=== PATIENT | male | born 1955 | race Hispanic/Latino ===

== ENCOUNTER 2019-12-03 12:05 | Emergency (ER) | payer MEDICARE ==
--- NOTE | 2019-12-03 14:17 | Event Note ---
ED Screening Note ED Screening Note: presents for SI that began yesterday states he plans to walk in front of a car states he has previously walked in front of a car in the past no HI no hallucinations PMHx HTN, carotid endarectomy, DM, HLD no allergies to meds non smoker non drinker no drug use has been to a psychiatric facility in the past, states he went to "[facility]" 5 years ago This initial assessment/diagnostic orders/clinical plan/treatment(s) is/are subject to change based on patients health status, clinical progression and re- assessment by fellow clinical providers in the ED. Further treatment and workup at subsequent clinical providers discretion. Patient/guardian urged not to elope from the ED as their condition may be serious if not clinically assessed and managed. Initial orders include: mental health labs ED HOLD orders placed
[2019-12-03 14:43] LABS: Basophils % (Auto) 0.5 % (0.0-1.8); Eosinophils # (Auto) 0.1 K/mm3 (0.0-0.4); Eosinophils % (Auto) 0.7 % (0.0-4.3); Hematocrit 42.3 % (35.5-45.6); Hemoglobin 14.1 gm/dl (11.8-15.2); Lymphocytes # (Auto) 1.3 K/mm3 (1.2-5.4); Lymphocytes % (Auto) 14.2 % (13.4-35.0); Mean Corpuscular HGB Conc 33 % (32-34); Mean Corpuscular Volume 87 fl (84-94); Monocytes # (Auto) 0.5 K/mm3 (0.0-0.8); Monocytes % (Auto) 5.6 % (0.0-7.3); Platelet Count 163 K/mm3 (140-440); Red Blood Count 4.86 M/mm3 (3.65-5.03); Red Cell Distribution Width 14.3 % (13.2-15.2)
[2019-12-03 15:06] LABS: Albumin 4.2 g/dL (3.9-5); Calcium 9.2 mg/dL (8.4-10.2)
[2019-12-03 15:22] LABS: Amphetamine Screen,Urine PRESUMPTIVE NEGATIVE; Benzodiazepines Screen,Urine PRESUMPTIVE NEGATIVE; Cannabinoid Screen,Urine PRESUMPTIVE NEGATIVE; Cocaine Screen,Urine PRESUMPTIVE NEGATIVE; Methadone Screen,Urine PRESUMPTIVE NEGATIVE; Opiate Screen,Urine PRESUMPTIVE NEGATIVE
[2019-12-03] MEDS ORDERED: SODIUM CHLORIDE 0.9% 1000 ML 1,000 ML IV ONE ×2 (15:31)
[2019-12-03] MEDS ORDERED: INSULIN REGULAR, HUMAN 100 UNITS/1 ML IV ONE (15:31)
--- NOTE | 2019-12-03 15:38 | Emergency Department Report ---
ED General Adult HPI - General Chief complaint: Psych Stated complaint: SUICIDAL THOUGHTS Time Seen by Provider: 12/03/19 14:15 Source: patient Mode of arrival: Ambulatory Limitations: No Limitations - History of Present Illness Initial comments: 64 y.o. male with history of diabetes, major depression and hypertension presents with complaint of suicidal ideation. Patient states that he suicidal with the plan to walk into traffic. Patient states has been suicidal for the past 2 days. Patient denies any homicidal ideation. Patient denies any audito ry or visual hallucinations. Patient states he is supposed to be on Seroquel and clonazepam therapy. Patient states that he has been noncompliant with his diabetes medications as well. Patient denies abdominal pain or vomiting. - Related Data Home Medications Medication Instructions Recorded Confirmed Last Taken Atorvastatin [Lipitor Tab] 80 mg PO QHS 12/03/19 12/04/19 12/03/19 Canagliflozin/Metformin HCl 1 each PO DAILY 12/03/19 12/04/19 12/03/19 [Invokamet 150-500 mg Tablet] Citalopram [celeXA] 40 mg PO QDAY 12/03/19 12/04/19 12/03/19 Clopidogrel [Plavix] 75 mg PO QDAY 12/03/19 12/04/19 12/03/19 Finasteride [Proscar] 5 mg PO DAILY 12/03/19 12/04/19 12/03/19 Gabapentin 300 mg DAILY 12/03/19 12/04/19 12/03/19 QUEtiapine [SEROquel] 400 mg PO DAILY 12/03/19 12/04/19 12/03/19 amLODIPine [Norvasc] 10 mg PO DAILY 12/03/19 12/04/19 12/03/19 clonazePAM [Klonopin] 1 mg PO BID 12/03/19 12/04/19 12/03/19 tiZANidine [Zanaflex 4mg TAB] 4 mg PO DAILY 12/03/19 12/04/19 12/03/19 Allergies Allergy/AdvReac Type Severity Reaction Status Date / Time No Known Allergies Allergy Unverified 12/03/19 13:04 ED Review of Systems ROS: Stated complaint: SUICIDAL THOUGHTS Other details as noted in HPI Constitutional: denies: chills, fever Eyes: denies: eye pain, eye discharge, vision change ENT: denies: ear pain, throat pain Respiratory: denies: cough, shortness of breath, wheezing Cardiovascular: denies: chest pain, palpitations Endocrine: no symptoms reported Gastrointestinal: denies: abdominal pain, nausea, diarrhea Genitourinary: denies: urgency, dysuria Musculoskeletal: denies: back pain, joint swelling, arthralgia Skin: denies: rash, lesions Neurological: denies: headache, weakness, paresthesias Psychiatric: suicidal thoughts Hematological/Lymphatic: denies: easy bleeding, easy bruising ED Past Medical Hx - Past Medical History Hx Hypertension: Yes Hx Diabetes: Yes - Surgical History Past Surgical History?: Yes - Social History Smoking Status: Never Smoker Substance Use Type: None - Medications Home Medications: Home Medications Medication Instructions Recorded Confirmed Last Taken Type Atorvastatin [Lipitor Tab] 80 mg PO QHS 12/03/19 12/04/19 12/03/19 History Canagliflozin/Metformin HCl 1 each PO DAILY 12/03/19 12/04/19 12/03/19 History [Invokamet 150-500 mg Tablet] Citalopram [celeXA] 40 mg PO QDAY 12/03/19 12/04/19 12/03/19 History Clopidogrel [Plavix] 75 mg PO QDAY 12/03/19 12/04/19 12/03/19 History Finasteride [Proscar] 5 mg PO DAILY 12/03/19 12/04/19 12/03/19 History Gabapentin 300 mg DAILY 12/03/19 12/04/19 12/03/19 History QUEtiapine [SEROquel] 400 mg PO DAILY 12/03/19 12/04/19 12/03/19 History amLODIPine [Norvasc] 10 mg PO DAILY 12/03/19 12/04/19 12/03/19 History clonazePAM [Klonopin] 1 mg PO BID 12/03/19 12/04/19 12/03/19 History tiZANidine [Zanaflex 4mg TAB] 4 mg PO DAILY 12/03/19 12/04/19 12/03/19 History ED Physical Exam - General Limitations: No Limitations General appearance: alert, in no apparent distress - Head Head exam: Present: atraumatic, normocephalic - Eye Eye exam: Present: normal appearance - ENT ENT exam: Present: mucous membranes moist - Neck Neck exam: Present: normal inspection - Respiratory Respiratory exam: Present: normal lung sounds bilaterally. Absent: respiratory distress - Cardiovascular Cardiovascular Exam: Present: regular rate, normal rhythm. Absent: systolic murmur, diastolic murmur, rubs, gallop - GI/Abdominal GI/Abdominal exam: Present: soft, normal bowel sounds - Rectal Rectal exam: Present: deferred - Extremities Exam Extremities exam: Present: normal inspection - Back Exam Back exam: Present: normal inspection - Neurological Exam Neurological exam: Present: alert, oriented X3 - Psychiatric Psychiatric exam: Present: normal affect, depressed, suicidal ideation (plan to walk into traffic) - Skin Skin exam: Present: warm, dry, intact, normal color. Absent: rash ED Course Vital Signs 12/03/19 12/03/19 12/03/19 13:00 13:03 20:05 Temperature 98.2 F 98.5 F 98.1 F Pulse Rate 77 94 H 73 Respiratory 18 16 20 Rate Blood Pressure 130/77 Blood Pressure 157/84 149/69 [Left] O2 Sat by Pulse 95 91 95 Oximetry 12/04/19 12/04/19 12/04/19 01:10 07:30 10:41 Temperature 97.4 F L 98.4 F Pulse Rate 82 81 88 Respiratory 20 18 Rate Blood Pressure 193/93 Blood Pressure 140/71 166/90 [Left] O2 Sat by Pulse 99 96 Oximetry 12/04/19 11:43 Temperature 98.4 F Pulse Rate 90 Respiratory 20 Rate Blood Pressure Blood Pressure 142/76 [Left] O2 Sat by Pulse Oximetry ED Medical Decision Making - Lab Data Result diagrams: 12/03/19 14:30 12/03/19 19:53 - Medical Decision Making Patient received IV normal saline bolus times time along with IV insulin while in the emergency department. Patient is medically clear. Patient is eating and chills no evidence of DKA. Patient awaiting Psychiatry and patient placed in ED hold. Patient has normal pH on ABG. - Differential Diagnosis Dehydration; Electrolyte Abnormality: DKA; Polysubstance Abuse; Psychosis Critical care attestation.: If time is entered above; I have spent that time in minutes in the direct care of this critically ill patient, excluding procedure time. ED Disposition Clinical Impression: Suicidal ideation, Diabetes mellitus with hyperglycemia Disposition: -01 TO HOME OR SELFCARE Is pt being admited?: No Does the pt Need Aspirin: No Condition: Stable Instructions: Diabetes Mellitus Type 2 in Adults (ED) Referrals: PRIMARY CARE, [Primary Care Provider] - 3-5 Days Time of Disposition: 22:09 Print Language: [place] CITIZ[place]
[2019-12-03 20:58] LABS: Albumin 3.6 g/dL (3.9-5); Calcium 8.3 mg/dL (8.4-10.2)
[2019-12-03] MEDS: clonazePAM 0.5 MG TAB PO SCH (22:56)
[2019-12-04 00:38] LABS: Bilirubin,Urine NEG (Negative); Blood,Urine NEG (Negative); Color,Urine Colorless (Yellow); Protein,Urine <15 mg/dL mg/dL (Negative); Urobilinogen,Urine < 2.0 mg/dL (<2.0); WBC,Urine < 1.0 /HPF (0.0-6.0)
[2019-12-04] MEDS ORDERED: QUEtiapine 200 MG TAB PO SCH (10:00)
[2019-12-04] MEDS ORDERED: amLODIPine 10 MG TAB PO SCH (10:00)
[2019-12-04] MEDS ORDERED: CLOPIDOGREL 75 MG TAB PO SCH (10:00)
[2019-12-04] MEDS ORDERED: CITALOPRAM 20 MG TAB PO SCH (10:00)
[2019-12-04] MEDS: clonazePAM 0.5 MG TAB PO SCH (10:35)
[2019-12-04 11:45] VITALS: BP 142/76
== END 2019-12-04 12:23 | disposition home or self-care (01) ==
LOC: ED 12:05
DX: E11.65 Type 2 diabetes mellitus with hyperglycemia (principal); R45.851 Suicidal ideations; I10 Essential (primary) hypertension; Z79.899 Other long term (current) drug therapy
CPT/HCPCS: 36415; 80053; 80307; 80320; 81001; 82803; 82962; 85025; 96361; 96374; G0480; J1815; J7030